=== PATIENT | male | born 1990 | race African-American/Black ===

== ENCOUNTER 2018-01-05 04:28 | Emergency (ER) | payer MEDICAID, OTHER ==
[~2018-01-05] VITALS: Ht 175.3 cm; Wt 75.0 kg
[2018-01-05] MEDS ORDERED: SODIUM CHLORIDE 0.9% 1,000 ML IV ONE (07:17)
[2018-01-05] MEDS ORDERED: LORAZEPAM 2MG/ML CPJ IM ONE (07:30)
[2018-01-05] MEDS ORDERED: LORAZEPAM 2MG/ML CPJ IV ONE (08:15)
[2018-01-05 08:25] LABS: BASOPHILS % 0.6 % (0.0-2.0); EOSINOPHILS % 3.9 % (0.0-5.0); HEMATOCRIT. 41.9 % (42.0-52.0); HEMOGLOBIN. 14.1 g/dL (14.0-18.0); LYMPHOCYTES % 30.7 % (20.0-50.0); MEAN CORPUSCULAR HEMOGLOBIN 31.3 pg (28.0-32.0); MEAN CORPUSCULAR VOLUME 93.1 fL (80.0-94.0); MONOCYTES % 7.4 % (2.0-8.0); NEUTROPHILS % 57.4 % (40.0-76.0); PLATELET 291 x1000/uL (130-400); RED CELL DISTRIBUTION WIDTH 12.6 % (11.6-14.6)
[2018-01-05 10:33] LABS: CLARITY URINE CLEAR (CLEAR); COLOR URINE YELLOW (YELLOW); KETONES URINE NEGATIVE (NEGATIVE); LEUKOCYTE ESTERASE URINE NEGATIVE (NEGATIVE); NITRITE URINE NEGATIVE (NEGATIVE); OCCULT BLOOD URINE NEGATIVE (NEGATIVE); PROTEIN URINE NEGATIVE (NEGATIVE); SPECIFIC GRAVITY URINE 1.006 (1.005-1.030); UROBILINOGEN URINE 0.2 E.U./dL (0.2-1.0)
[2018-01-05 10:52] LABS: METHADONE URINE SCREEN NEGATIVE (NEGATIVE); OPIATES URINE SCREEN NEGATIVE (NEGATIVE)
[2018-01-05 10:53] LABS: *AMPHETAMINES SCREEN URINE PRESUMTIVE POSITIVE (NEGATIVE); *BARBITURATES SCREEN URINE NEGATIVE (NEGATIVE); CANNABINOID URINE SCREEN NEGATIVE (NEGATIVE); PHENCYCLIDINE URINE SCREEN NEGATIVE (NEGATIVE)
[2018-01-05 10:54] LABS: *BENZODIAZEPINES SCREEN URINE NEGATIVE (NEGATIVE); *COCAINE SCREEN URINE NEGATIVE (NEGATIVE)
[2018-01-05 11:13] LABS: ETHANOL BLOOD < 10 mg/dL
[2018-01-05 17:44] VITALS: BP 117/75
== END 2018-01-05 18:01 | disposition home or self-care (01) ==
LOC: ER 04:28
DX: T43.621A Poisoning by amphetamines, accidental (unintentional), initial encounter (principal); F17.200 Nicotine dependence, unspecified, uncomplicated; Y92.89 Other specified places as the place of occurrence of the external cause
CPT/HCPCS: 36415; 80305; 80307; 80329; 81003; 85025; 96372; 99284; G0482; J2060; J7030; Z7610

== ENCOUNTER 2020-06-28 22:13 | Emergency (ER) | payer MEDICAID ==
[~2020-06-28] VITALS: Ht 177.8 cm; Wt 80.0 kg
[2020-06-28] MEDS ORDERED: LIDOCAINE HCL/PF 1% 10 MG/ML 5ML VIAL IJ STA (23:09)
[2020-06-28] MEDS ORDERED: BACITRACIN ZINC OINT UDPKT TOP ONE (23:15)
[2020-06-29 00:30] VITALS: BP 129/76
== END 2020-06-29 00:30 | disposition home or self-care (01) ==
LOC: ER 22:13
DX: S61.412A Laceration without foreign body of left hand, initial encounter (principal); W26.0XXA Contact with knife, initial encounter; Y93.89 Activity, other specified; Y92.010 Kitchen of single-family (private) house as the place of occurrence of the external cause
CPT/HCPCS: 99282; A4217; J3490; Z7610

== ENCOUNTER 2020-09-23 06:58 | Emergency (ER) | payer MEDICAID ==
[~2020-09-23] VITALS: Ht 177.8 cm; Wt 82.0 kg
[2020-09-23 06:59] VITALS: BP 123/75
== END 2020-09-23 08:16 | disposition left against medical advice (07) ==
LOC: ER 06:58
DX: Z53.21 Procedure and treatment not carried out due to patient leaving prior to being seen by health care provider (principal)